=== PATIENT | female | born 1985 | race Caucasian/White ===

== ENCOUNTER 2016-08-25 10:21 | Emergency (ER) | payer OTHER ==
[2016-08-25] MEDS ORDERED: SODIUM CHLORIDE 0.9% 1,000 ML ONE (12:10)
[2016-08-25] MEDS ORDERED: KETOROLAC 30 MG/ML VIAL ONE (13:22)
== END 2016-08-25 15:43 | disposition home or self-care (01) ==
LOC: ER 10:21
DX: R10.31 Right lower quadrant pain (principal); E03.9 Hypothyroidism, unspecified; F17.210 Nicotine dependence, cigarettes, uncomplicated
CPT/HCPCS: 36415; 80053; 81003; 83690; 84703; 85025; 96361; 96365